=== PATIENT | male | born 1955 | race Caucasian/White ===

== ENCOUNTER 2020-06-30 08:09 | Outpatient (REF) | payer MEDICAID, SELFPAY | END 2020-06-30 08:10 | disposition home or self-care (01) | LOC: HO.BBR 08:09 | PROVIDERS: Visit Provider Internal Medicine | DX: Z13.89 Encounter for screening for other disorder (principal) ==

== ENCOUNTER 2020-08-18 13:21 | Outpatient (REF) | payer MEDICAID, SELFPAY | END 2020-08-18 13:22 | disposition home or self-care (01) | LOC: HO.LAB 13:21 | PROVIDERS: Visit Provider Internal Medicine | DX: Z20.822 Contact with and (suspected) exposure to COVID-19 (principal) | CPT/HCPCS: 36415; C9803; U0003; U0005 ==

== ENCOUNTER 2021-12-04 09:09 | Outpatient (REF) | payer MEDICARE, MEDICAID, SELFPAY | END 2021-12-04 09:10 | disposition home or self-care (01) | LOC: HO.BBR 09:09 | PROVIDERS: Visit Provider Internal Medicine | DX: Z13.89 Encounter for screening for other disorder (principal) ==

== ENCOUNTER 2022-05-17 08:00 | Outpatient (REF) | payer MEDICARE, MEDICAID, SELFPAY | END 2022-05-17 08:01 | disposition home or self-care (01) | LOC: HO.BBR 08:00 | PROVIDERS: Visit Provider Internal Medicine | DX: Z13.89 Encounter for screening for other disorder (principal) ==

== ENCOUNTER 2022-06-25 08:04 | Outpatient (REF) | payer MEDICARE, MEDICAID, SELFPAY | END 2022-06-25 08:05 | disposition home or self-care (01) | LOC: HO.BBR 08:04 | PROVIDERS: Visit Provider Internal Medicine | DX: Z13.89 Encounter for screening for other disorder (principal) ==

== ENCOUNTER 2022-11-02 08:00 | Outpatient (REF) | payer MEDICARE, MEDICAID, SELFPAY | END 2022-11-02 08:01 | disposition home or self-care (01) | LOC: HO.BBR 08:00 | PROVIDERS: Visit Provider Internal Medicine | DX: Z13.89 Encounter for screening for other disorder (principal) ==

== ENCOUNTER 2023-01-05 09:04 | Outpatient (REF) | payer MEDICARE, MEDICAID, SELFPAY | END 2023-01-05 09:05 | disposition home or self-care (01) | LOC: HO.BBR 09:04 | PROVIDERS: Visit Provider Internal Medicine | DX: Z13.89 Encounter for screening for other disorder (principal) ==

== ENCOUNTER 2023-02-04 08:55 | Outpatient (REF) | payer MEDICARE, MEDICAID, SELFPAY | END 2023-02-04 08:56 | disposition home or self-care (01) | LOC: HO.BBR 08:55 | PROVIDERS: Visit Provider Internal Medicine | DX: Z13.89 Encounter for screening for other disorder (principal) ==

== ENCOUNTER 2023-03-07 08:02 | Outpatient (REF) | payer MEDICARE, MEDICAID, SELFPAY | END 2023-03-07 08:03 | disposition home or self-care (01) | LOC: HO.BBR 08:02 | PROVIDERS: Visit Provider Internal Medicine | DX: Z13.89 Encounter for screening for other disorder (principal) ==

== ENCOUNTER 2023-04-06 08:05 | Outpatient (REF) | payer MEDICARE, MEDICAID, SELFPAY | END 2023-04-06 08:06 | disposition home or self-care (01) | LOC: HO.BBR 08:05 | PROVIDERS: PCP Internal Medicine; Visit Provider Internal Medicine | DX: Z13.89 Encounter for screening for other disorder (principal) ==

== ENCOUNTER 2023-09-15 10:10 | Outpatient (REF) | payer MEDICARE, MEDICAID, SELFPAY | END 2023-09-15 10:11 | disposition home or self-care (01) | LOC: HO.BBR 10:10 | PROVIDERS: Visit Provider Internal Medicine | DX: Z13.89 Encounter for screening for other disorder (principal) ==

== ENCOUNTER 2023-10-13 10:04 | Outpatient (REF) | payer MEDICARE, OTHER, SELFPAY | END 2023-10-13 10:05 | disposition home or self-care (01) | LOC: HO.BBR 10:04 | PROVIDERS: PCP Internal Medicine; Visit Provider Internal Medicine | DX: Z13.89 Encounter for screening for other disorder (principal) ==

== ENCOUNTER 2023-11-15 08:52 | Outpatient (REF) | payer MEDICARE, OTHER, SELFPAY | END 2023-11-15 08:53 | disposition home or self-care (01) | LOC: HO.BBR 08:52 | PROVIDERS: PCP Internal Medicine; Visit Provider Internal Medicine | DX: Z13.89 Encounter for screening for other disorder (principal) ==

== ENCOUNTER 2024-04-13 13:15 | Outpatient (REF) | payer MEDICARE, OTHER, SELFPAY ==
[2024-04-13 14:32] LABS: CDiff Gene PCR POSITIVE (Negative)
[2024-04-13 15:10] LABS: CDIFF Internal ctrl Dots and bkg OK (V); CDiff Toxin Negative (Negative)
[2024-04-14 09:21] LABS: Adenovirus F 40/41 Not Detected (Not Detect.); Astrovirus Not Detected (Not Detect.); Campylobacter Not Detected (Not Detect.); Cryptosporidium Not Detected (Not Detect.); Cyclospora cayetanensis Not Detected (Not Detect.); E. coli EAEC Not Detected (Not Detect.); E. coli EPEC Not Detected (Not Detect.); E. coli ETEC Not Detected (Not Detect.); E. coli STEC Not Detected (Not Detect.); Entamoeba histolytica Not Detected (Not Detect.); Giardia lamblia Not Detected (Not Detect.); Norovirus GI/GII Not Detected (Not Detect.); Plesiomonas shigelloides Not Detected (Not Detect.); Rotavirus A Not Detected (Not Detect.); Salmonella Not Detected (Not Detect.); Sapovirus Not Detected (Not Detect.); Shigella sp./EIEC Not Detected (Not Detect.); Vibrio Not Detected (Not Detect.); Vibrio Cholerae Not Detected (Not Detect.); Yersinia enterocolitica Not Detected (Not Detect.)
[2024-04-21 18:44] LABS: Calprotectin, Fecal 5 mcg/g
== END 2024-04-13 13:16 | disposition home or self-care (01) ==
LOC: HO.LNP 13:15
PROVIDERS: Visit Provider Physician Assistant Medical
DX: R19.7 Diarrhea, unspecified (principal)
CPT/HCPCS: 83993; 87177; 87209; 87324; 87493; 87507

== ENCOUNTER 2024-05-08 19:51 | Emergency (ER) | payer MEDICARE, OTHER, SELFPAY ==
[2024-05-08 21:26] VITALS: BP 157/84; PULSE 76; RESP 18; TEMP 36.8; O2SAT 99; BMI 21.4
--- NOTE | 2024-05-08 23:52 | PC.NURSE ---
pt was not in their room at 2325. pt not seen walking out.
== END 2024-05-08 23:55 | disposition left against medical advice (07) ==
PROVIDERS: Emergency Provider Emergency Medicine; PCP Internal Medicine
DX: T14.8XXA Other injury of unspecified body region, initial encounter (principal); W57.XXXA Bitten or stung by nonvenomous insect and other nonvenomous arthropods, initial encounter; Y93.89 Activity, other specified; Y92.89 Other specified places as the place of occurrence of the external cause; Y99.8 Other external cause status
CPT/HCPCS: 99281; 99282